=== PATIENT | male | born 2005 | race Caucasian/White ===

== ENCOUNTER 2024-07-17 14:39 | Emergency (ER) | payer OTHER, SELFPAY ==
[2024-07-17 14:49] VITALS: BP 106/68; PULSE 58; RESP 16; TEMP 37.2; O2SAT 98; BMI 23.7
--- NOTE | 2024-07-17 15:17 | ED.GENADULT ---
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 He collided with another player and either hit his head on the other player or on the turf, no one is quite sure. No reported loss of consciousness. He does have amnesia surrounding the time of his injury. He has not had any other confusion, vomiting, no seizures, mild headache at this time. He does have a little bit of vomiting as well. He has a history of remote concussion which was mild. No other medical history. Related Data Home Medications ?Medication ?Instructions ?Recorded ?Confirmed No Known Home Medications 07/17/24 07/17/24 Allergies Allergy/AdvReac Type Severity Reaction Status Date / Time Penicillins Allergy Rash Verified 07/17/24 14:49 Review of Systems Status of ROS: Reports: 6 or more systems reviewed and unremarkable except as noted in History and below Exam Narrative: Exam Narrative: Vital signs reviewed In general, alert, nontoxic he young man. Head: Normocephalic, atraumatic. Eyes: Sclera clear. Pupils equal and reactive. ENT: Mucous membranes moist. Neck: Supple without adenopathy. Nontender to palpation. Heart: Regular rate and rhythm without murmur. Lungs: Clear. No increased work of breathing, crackles or wheezes. Neurologic: Alert, conversant. Speech fluent, face symmetric. Moves all extremities equally. Skin: Warm, dry well perfused. Affect: Normal. Const: Vital Signs, click to edit/add: Vital Signs - 24 hr 07/17/24 14:49 Temperature 98.9 F Pulse Rate [Pulse Oximeter] 58 L Respiratory Rate 16 Blood Pressure [Ri ght Upper Arm] 106/68 Pulse Oximetry 98 Oxygen Delivery Me thod Room Air Course Course ED Course: Patient presents with symptoms consistent with concussion but no red flags suggesting he needs immediate imaging. Exam is reassuring. Discussed the expected course for concussion, declines need for any medications here. He can use ibuprofen or Tylenol if needed for headache at home. For significant worsening, return to the ER at any time. Brain injury clinic offered as the resource if he feels symptoms are severe or not improving over the next few weeks. Vital Signs Vital signs: Initial Vital Signs Temperature 98.9 F 07/17/24 14:49 Temperature Source Temporal Artery Scan 07/17/24 14:49 Pulse Rate 58 L 07/17/24 14:49 Respiratory Rate 16 07/17/24 14:49 Blood Pressure 106/68 07/17/24 14:49 Blood Pressure Mean 80 07/17/24 14:49 Blood Pressure Position Sitting 07/17/24 14:49 Pulse Oximetry 98 07/17/24 14:49 Oxygen Delivery Method Room Air 07/17/24 14:49 Vital Signs Temperature 98.9 F 07/17/24 14:49 Pulse Rate 58 L 07/17/24 14:49 Respiratory Rate 16 07/17/24 14:49 Blood Pressure 106/68 07/17/24 14:49 Pulse Oximetry 98 07/17/24 14:49 Oxygen Delivery Method Room Air 07/17/24 14:49 Temperature 98.9 F 07/17/24 14:49 Pulse Rate 58 L 07/17/24 14:49 Respiratory Rate 16 07/17/24 14:49 Blood Pressure 106/68 07/17/24 14:49 Pulse Oximetry 98 07/17/24 14:49 Oxygen Delivery Method Room Air 07/17/24 14:49 Discharge Plan Discharge Clinical Impression: Concussion without loss of consciousness Patient Disposition: Home, Self-Care Condition: Stable Instructions: Concussion (ED) Additional Instructions: Ibuprofen and/or Tylenol if needed for headache. You may have symptoms such as headache, dizziness, nausea, mental fogginess etcetera over the next few days to few weeks. If you do not feel like your improving or the symptoms are severe enough to interfere with school, the [facility] brain injury clinic is a resource you can consider. Return any time for acute worsening such as severe headache, altered mentation, repeated vomiting. Prescriptions: No Action No Known Home Medications Stand Alone Forms: [facility] Info Instructions
== END 2024-07-17 15:30 | disposition home or self-care (01) ==
PROVIDERS: Emergency Provider Emergency Medicine
DX: S06.0X0A Concussion without loss of consciousness, initial encounter (principal); X58.XXXA Exposure to other specified factors, initial encounter; Y93.63 Activity, rugby
CPT/HCPCS: 99282; 99283